=== PATIENT | male | born 2000 | race Two or more races ===

== ENCOUNTER → 2024-05-30 | Emergency (ER) | payer OTHER ==
[~2024-05-30] VITALS: Ht 1706.9 cm; Wt 64.4 kg
[~2024-05-30] MED LIST: ACETAMINOPHEN 650 MG/20.3 ML LIQUID UDC ONE; IBUP-1955 PO
[2024-05-30] MEDS: ACETAMINOPHEN 650 MG/20.3 ML LIQUID UDC PO ONE (09:08)
[2024-05-30] MEDS: KETOROLAC TROMETHAMINE 15 MG INJ IM ONE (10:40)
[2024-05-30 10:45] VITALS: BP 127/77; O2SAT 98
== END | disposition home or self-care (01) ==
LOC: ER 08:18
DX: S16.1XXA Strain of muscle, fascia and tendon at neck level, initial encounter (principal); S09.8XXA Other specified injuries of head, initial encounter; Z60.2 Problems related to living alone; W22.8XXA Striking against or struck by other objects, initial encounter; Y93.89 Activity, other specified; Y92.69 Other specified industrial and construction area as the place of occurrence of the external cause; Y99.0 Civilian activity done for income or pay
CPT/HCPCS: 99285; 70450; 73030; 72125; 96372; J1885; A4606; A4663